=== PATIENT | male | born 1945 | race Caucasian/White ===

== ENCOUNTER → 2019-02-04 08:51 | Outpatient (CLI) | payer MEDICARE, OTHER, SELFPAY ==
--- NOTE | 2019-02-04 | DI.CT.S_ITS ---
PROCEDURE: CT KIDNEY URETER BLADDER (KUB) INDICATIONS: RIGHT FLANK PAIN TECHNIQUE: Noncontrast 5 mm thick sections acquired from the diaphragms to the symphysis. 5 mm thick coronal and sagittal reformats were then performed. For radiation dose reduction, the following was used: automated exposure control, adjustment of mA and/or kV according to patient size. COMPARISON: None. FINDINGS: Image quality: Excellent. Lung bases: Lung bases are clear. Heart size is normal. Urinary system: Both kidneys are normal in size. No kidney stones. No hydronephrosis or perinephric fat stranding. Both ureters appear non-dilated throughout their expected courses. Bladder wall thickness is normal; no calcified bladder stones. Other solid organs: Liver is normal in size. Gallbladder appears partially contracted. Pancreas is normal in contours. Spleen is normal in size. No adrenal nodules. Peritoneum and bowel: Unenhanced bowel loops demonstrate normal wall thickness and caliber. No free fluid or air. Nodes and vessels: No retroperitoneal or mesenteric adenopathy by size criteria. Aorta and inferior vena cava are normal in caliber. Abdominal wall: No ventral hernias. Pelvis: No free pelvic fluid. No inguinal hernias or adenopathy. Bones: No suspicious bony lesions. No vertebral body compression fractures. IMPRESSION: No hydronephrosis or nephrolithiasis is found bilaterally. Along the expected course of the right ureter through the retroperitoneum no inflammation or calculus can be seen. The bladder appears nondistended, free of calculus. A definite source of asymmetric right-sided flank pain is not seen. Dictated by: Aries Helton M.D. on 02/04/2019 at 9:25 Approved by: Aries Helton M.D. on 02/04/2019 at 9:27
== END ==
PROVIDERS: PCP Internal Medicine; Visit Provider Internal Medicine
DX: R10.9 Unspecified abdominal pain (principal)
CPT/HCPCS: 74176

== ENCOUNTER → 2019-02-12 13:54 | Outpatient (CLI) | payer MEDICARE, OTHER, SELFPAY ==
--- NOTE | 2019-02-12 | DI.MRI.S_ITS ---
PROCEDURE: MR HEAD/BRAIN WO/W CON INDICATIONS: VASCULAR DEMENTIA WO BEHAVIORAL DISTURBANCE TECHNIQUE: Noncontrast axial T1 spin echo, axial T2 fast spin echo, sagittal and axial FLAIR, coronal T2 fast spin echo, axial gradient echo, axial diffusion and ADC through the brain. After the administration of contrast, axial and coronal 3D VIBE or T1 spin echo with fat saturation through the brain. COMPARISON: None. FINDINGS: Image quality: Excellent. CSF Spaces: Basal cisterns are patent. No extra-axial fluid collections. Ventricles are normal in size and shape. Brain: No midline shift. No intracranial bleeds or masses. No abnormal intracranial enhancement. The brainstem appears normal. Diffusion-weighted images demonstrate no acute ischemic insults. No chronic ischemic insults at the right hemisphere but the posterior occipital lobe on the left shows encephalomalacia chronic in appearance in an area measuring approximately 2 x 3 cm, against the convexity, without associated diffusion signal abnormality that would indicate subacute or acute injury as cause of this appearance.. Normal intravascular flow voids are present. Skull and face: Calvarial marrow is normal in signal. Orbits appear normal. Sinuses: Sinuses and mastoids appear clear. 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 Mild underlying microvascular atherosclerotic changes seen in the deep white matter elsewhere but no additional strokes are found and no mass or inflammation is seen. Dictated by: Aries Helton M.D. on 02/12/2019 at 14:50 Approved by: Aries Helton M.D. on 02/12/2019 at 14:51
== END ==
PROVIDERS: PCP Internal Medicine; Visit Provider Internal Medicine
DX: F01.50 Vascular dementia, unspecified severity, without behavioral disturbance, psychotic disturbance, mood disturbance, and anxiety (principal); G93.89 Other specified disorders of brain
CPT/HCPCS: 70553; A9579

== ENCOUNTER → 2019-02-19 09:40 | Outpatient (CLI) | payer MEDICARE, OTHER, SELFPAY ==
--- NOTE | 2019-02-19 | DI.RAD.S_ITS ---
PROCEDURE: XR RIBS LT 2V INDICATIONS: LEFT SIDED CHEST WALL PAIN TECHNIQUE: 2 views of the left ribs were acquired. COMPARISON: None. FINDINGS: Surgical changes and devices: None. Bones and chest wall: There is no displaced left third, fourth, and possibly ninth rib fractures of uncertain chronicity. No suspicious bony lesions. Overlying soft tissues appear unremarkable. Lungs and pleura: The visualized lung appears clear. No pleural effusions or pneumothorax are visible. IMPRESSION: Left third fourth and possibly ninth rib fractures of uncertain chronicity. Dictated by: Corrina Ramesh M.D. on 02/19/2019 at 10:10 Approved by: Corrina Ramesh M.D. on 02/19/2019 at 10:12
== END ==
PROVIDERS: PCP Internal Medicine; Visit Provider Internal Medicine
DX: R07.89 Other chest pain (principal); S22.42XA Multiple fractures of ribs, left side, initial encounter for closed fracture
CPT/HCPCS: 71100

== ENCOUNTER → 2019-03-21 13:01 | Outpatient (CLI) | payer MEDICARE, OTHER, SELFPAY ==
[2019-03-21 13:48] LABS: Add Manual Diff / Slide Review NO; Basophils Absolute Auto 100 /uL (0-100); Basophils Percent Auto 1.1 % (0-2); Eosinophils Absolute Auto 200 /uL (0-450); Eosinophils Percent Auto 4.5 % (2-4); Hematocrit 41.7 % (41-53); Hemoglobin 13.8 g/dL (13.5-17.5); Lymphocytes Absolute Auto 2000 /uL (1100-4500); Lymphocytes Percent Auto 39.5 % (25-40); Mean Corpuscular Hemoglobin 30.3 PG (26-34); Monocytes Absolute Auto 400 /uL (0-900); Neutrophils Absolute Auto 2400 /uL (1500-7000); Neutrophils Percent Auto 47.9 % (50-75); Platelet Count 127 X10^3/uL (150-400); Red Blood Cell Count 4.54 X10^6/uL (4.5-5.9); Red Cell Distribution Width 13.6 % (11.6-14.8); White Blood Cell Count 5.1 X10^3/uL (4.5-11.0)
[2019-03-21 14:54] LABS: Carbon Dioxide 27 mmol/L (22-32); Chloride 102 mmol/L (98-107); HEMOLYSIS < 15 (0-50); Potassium 4.1 mmol/L (3.4-5.1); Sodium 139 mmol/L (137-145)
== END ==
PROVIDERS: PCP Internal Medicine; Visit Provider Orthopaedic Surgery
DX: M17.10 Unilateral primary osteoarthritis, unspecified knee (principal); Z01.818 Encounter for other preprocedural examination; Z01.812 Encounter for preprocedural laboratory examination
CPT/HCPCS: 36415; 80051; 85025; 93005; 93010

== ENCOUNTER → 2019-11-21 11:47 | Outpatient (CLI) | payer MEDICARE, OTHER, SELFPAY ==
--- NOTE | 2019-11-21 | DI.RAD.S_ITS ---
PROCEDURE: XR HAND LT MIN 3V INDICATIONS: PAIN IN JOINTS OF RIGHT LEFT TECHNIQUE: 3 views of the hand(s) acquired. COMPARISON: None. FINDINGS: Bones: No fractures or dislocations. Carpal bones are normally aligned. No suspicious bony lesions. Severe second and third DIP joint osteoarthritic degenerative changes. Moderate first fourth and fifth PIP joint osteoarthritis. Soft tissues: No suspicious soft tissue calcifications. IMPRESSION: Osteoarthritis. Dictated by: Crystal Freitas MD, PhD on 11/21/2019 at 14:45 Approved by: Crystal Freitas MD, PhD on 11/21/2019 at 14:46
--- NOTE | 2019-11-21 | DI.RAD.S_ITS ---
PROCEDURE: XR HAND RT MIN 3V INDICATIONS: PAIN IN JOINTS OF RIGHT HAND TECHNIQUE: 3 views of the hand(s) acquired. COMPARISON: [facility], CR, XR HAND LT MIN 3V, 11/21/2019, 11:49. FINDINGS: Bones: No fractures or dislocations. Carpal bones are normally aligned. No suspicious bony lesions. Severe third DIP joint osteoarthritis. Moderate second DIP joint osteoarthritis. Mild first, fourth and fifth DIP joints osteoarthritis. Severe first CMC joint osteoarthritis. Soft tissues: No suspicious soft tissue calcifications. IMPRESSION: Osteoarthritis. Dictated by: Crystal Freitas MD, PhD on 11/21/2019 at 14:46 Approved by: Crystal Freitas MD, PhD on 11/21/2019 at 14:47
== END ==
PROVIDERS: PCP Internal Medicine; Visit Provider Internal Medicine
DX: M25.541 Pain in joints of right hand (principal); M25.542 Pain in joints of left hand; M19.042 Primary osteoarthritis, left hand; M19.041 Primary osteoarthritis, right hand; M18.11 Unilateral primary osteoarthritis of first carpometacarpal joint, right hand; Z12.5 Encounter for screening for malignant neoplasm of prostate; E78.49 Other hyperlipidemia; R10.9 Unspecified abdominal pain
CPT/HCPCS: 73130; 80061; 82565; 84153; 84154; 84450; 84460; 84520

== ENCOUNTER → 2019-11-21 15:22 | Outpatient (ROUT) | payer MEDICARE, OTHER, SELFPAY ==
[2019-11-21 16:10] LABS: Alanine Aminotransferase 21 IU/L (<50); Aspartate Aminotransferase 30 IU/L (17-59); Blood Urea Nitrogen 14 mg/dL (9-20); Cholesterol 137 mg/dL (140-199); Estimated Glomerular Filt Rate > 60.0 mL/min (>60); HDL Cholesterol 47 mg/dL (40-60); LDL Cholesterol Calculated 74 mg/dL (<100); Triglycerides 80 mg/dL (35-150)
[2019-11-23 14:09] LABS: PSA Free % 28 % (calc) (> 25); PSA, Total 2.5 ng/mL (< 4.1)
== END ==
PROVIDERS: PCP Internal Medicine; Visit Provider Internal Medicine
DX: Z12.5 Encounter for screening for malignant neoplasm of prostate (principal); E78.49 Other hyperlipidemia; R10.9 Unspecified abdominal pain
CPT/HCPCS: 80061; 82565; 84153; 84154; 84450; 84460; 84520

== ENCOUNTER → 2019-11-25 09:57 | Outpatient (CLI) | payer MEDICARE, OTHER, SELFPAY ==
--- NOTE | 2019-11-25 | DI.CT.S_ITS ---
PROCEDURE: CT ABDOMEN W CON INDICATIONS: Unspecified abdominal pain TECHNIQUE: After the administration of oral and intravenous contrast, 5 mm thick sections acquired from the diaphragms to the iliac crests. 5 mm thick coronal and sagittal reformats were acquired. For radiation dose reduction, the following was used: automated exposure control, adjustment of mA and/or kV according to patient size. COMPARISON: None. FINDINGS: Image quality: Excellent. Lung bases: Lung bases are clear. Heart size is normal. Solid organs: Liver is normal in size and enhancement. Gallbladder appears normal. Biliary system is non dilated. Pancreas enhances normally. Spleen is normal in size and enhancement. No adrenal nodules. Kidneys are normal in size, without hydronephrosis. Peritoneum and bowel: Contrast enhanced bowel loops appear normal in caliber. No free fluid or air. Colonic obstipation is present over the right and left colon. Nodes and vessels: No retroperitoneal or mesenteric adenopathy by size criteria. Aorta and inferior vena cava are normal in size. Bones: No suspicious bony lesions. No vertebral body compression fractures. Miscellaneous: No ventral hernias. IMPRESSION: Right and left abdominal colonic obstipation. Please note that this abdominal CT does not include pelvis scanning. No hydronephrosis or nephrolithiasis found, no inflammatory free fluid identified. Dictated by: Aries Helton M.D. on 11/25/2019 at 14:36 Approved by: Aries Helton M.D. on 11/25/2019 at 14:37
== END ==
PROVIDERS: PCP Internal Medicine; Visit Provider Internal Medicine
DX: R10.9 Unspecified abdominal pain (principal); K59.00 Constipation, unspecified
CPT/HCPCS: 74160; Q9967

== ENCOUNTER → 2020-05-28 14:45 | Outpatient (ROUT) | payer MEDICARE, OTHER, SELFPAY ==
[2020-05-28 15:01] LABS: Add Manual Diff / Slide Review NO; Basophils Absolute Auto 0 /uL (0-100); Basophils Percent Auto 0.4 % (0-2); Eosinophils Absolute Auto 200 /uL (0-450); Eosinophils Percent Auto 3.6 % (2-4); Hematocrit 42.4 % (41-53); Hemoglobin 14.3 g/dL (13.5-17.5); Lymphocytes Absolute Auto 1800 /uL (1100-4500); Lymphocytes Percent Auto 30.1 % (25-40); Mean Corpuscular HGB Conc 33.7 % (30-36); Mean Corpuscular Hemoglobin 31.3 PG (26-34); Mean Corpuscular Volume 92.7 fL (80-100); Monocytes Absolute Auto 400 /uL (0-900); Monocytes Percent Auto 6.1 % (3-14); Neutrophils Absolute Auto 3500 /uL (1500-7000); Neutrophils Percent Auto 59.8 % (50-75); Platelet Count 125 X10^3/uL (150-400); Red Blood Cell Count 4.58 X10^6/uL (4.5-5.9); Red Cell Distribution Width 13.1 % (11.6-14.8); White Blood Cell Count 5.9 X10^3/uL (4.5-11.0)
[2020-05-28 15:25] LABS: Blood Urea Nitrogen 16 mg/dL (9-20); Calcium 9.5 mg/dL (8.4-10.2); Carbon Dioxide 25 mmol/L (22-32); Chloride 106 mmol/L (98-107); Estimated Glomerular Filt Rate > 60.0 mL/min (>60); Glucose 127 mg/dL (80-110); HEMOLYSIS 15 (0-50); Sodium 140 mmol/L (137-145)
== END ==
PROVIDERS: PCP Internal Medicine; Visit Provider Internal Medicine
DX: Z01.818 Encounter for other preprocedural examination (principal)
CPT/HCPCS: 80048; 85025

== ENCOUNTER 2021-02-18 13:45 | Emergency (ER) | payer MEDICARE, OTHER, SELFPAY ==
[2021-02-18] VITALS (9 sets, daily range): BP systolic 129–153; BP diastolic 60–70; PULSE 44–69; RESP 13–28; TEMP 36.6; O2SAT 96–99; BMI 22.4
[2021-02-18 14:22] LABS: Add Manual Diff / Slide Review NO; Basophils Absolute Auto 0 /uL (0-100); Basophils Percent Auto 1.1 % (0-2); Eosinophils Absolute Auto 200 /uL (0-450); Eosinophils Percent Auto 3.7 % (2-4); Hematocrit 38.7 % (41-53); Hemoglobin 13.2 g/dL (13.5-17.5); Lymphocytes Absolute Auto 1500 /uL (1100-4500); Lymphocytes Percent Auto 35.1 % (25-40); Mean Corpuscular HGB Conc 34.1 % (30-36); Mean Corpuscular Hemoglobin 31.7 PG (26-34); Mean Corpuscular Volume 92.8 fL (80-100); Monocytes Absolute Auto 300 /uL (0-900); Monocytes Percent Auto 7.4 % (3-14); Neutrophils Absolute Auto 2300 /uL (1500-7000); Neutrophils Percent Auto 52.7 % (50-75); Platelet Count 129 X10^3/uL (150-400); Red Blood Cell Count 4.17 X10^6/uL (4.5-5.9); Red Cell Distribution Width 13.1 % (11.6-14.8); White Blood Cell Count 4.3 X10^3/uL (4.5-11.0)
[2021-02-18 14:25] LABS: INR 1.1 (0.9-1.3); Prothrombin Time 12.6 SECONDS (10.1-12.7)
[2021-02-18 14:28] LABS: PTT Partial Thromboplastin Tim 30 SECONDS (26.4-36.2)
[2021-02-18 14:29] LABS: Alanine Aminotransferase 21 IU/L (<50); Albumin 4.2 g/dL (3.5-5.0); Albumin Globulin Ratio 1.6 (1.0-2.8); Alkaline Phosphatase 46 U/L (38-126); Aspartate Aminotransferase 33 IU/L (17-59); BUN Creatinine Ratio 15.8 (6-22); Bilirubin Total 0.5 mg/dL (0.2-1.3); Blood Urea Nitrogen 15 mg/dL (9-20); Calcium 9.5 mg/dL (8.4-10.2); Carbon Dioxide 26 mmol/L (22-32); Chloride 106 mmol/L (98-107); Estimated Glomerular Filt Rate > 60.0 mL/min (>60); Globulin 2.6 g/dL (1.7-4.1); Glucose 102 mg/dL (80-110); HEMOLYSIS 24 (0-50); Lipase 168 U/L (23-300); Sodium 140 mmol/L (137-145); Total Protein 6.8 g/dL (6.3-8.2)
--- NOTE | 2021-02-18 15:20 | ED_ITS ---
HPI - Abdominal Pain General Chief Complaint: Abdominal Pain Stated Complaint: pain in lower right side Time Seen by Provider: 02/18/21 14:12 Source: patient Mode of arrival: Ambulatory Limitations: no limitations History of Present Illness HPI narrative: 75-year-old male nonsmoker with history of kidney stones and hypertension presents with his in the chief complaint of right lower quadrant pain that radiates to his back. He states this has been present for about a week and in some ways feels like prior kidney stones and otherwise much different. He states that seems to be rather persistent and worse with motion and improved with rest. He admits to decreased BMs in that time frame as well. Furthermore, he admits to trouble starting his urine stream with increasing frequency. He has had no fever or chills. MD complaint: abdominal pain and flank pain Onset (ago): day(s) Pain Consistency: constant Location: RLQ Severity: moderate Quality: cramping and aching Radiation: R flank Relieving factors: rest Exacerbating factors: movement Associated symptoms: constipation Related Data Home Medications Medication Instructions Recorded Confirmed aspirin 325 mg PO Q DAY #0 07/03/17 atorvastatin [Lipitor] 10 mg PO QHS #0 07/03/17 hydrocodone-acetaminophen [Vicodin] 1 tab PO Q 6 PRN #0 07/03/17 lamotrigine [Lamictal] 50 mg PO BID #0 07/03/17 omeprazole 20 mg PO Q DAY #0 07/03/17 promethazine 25 mg PO PRN #0 07/03/17 tamsulosin [Flomax] 0.4 mg PO Q DAY #0 07/03/17 Allergies Allergy/AdvReac Type Severity Reaction Status Date / Time No Known Drug Allergies Allergy Verified 02/18/21 13:56 Review of Systems Constitutional Constitutional: Denies chills, Denies fatigue, Denies fever(s), Denies frequent falls, Denies lethargy and Denies weakness Eyes Eyes: Denies change in vision, Denies eye discharge, Denies irritation and Denies loss of vision ENT Ears, Nose, Mouth, and Throat: Denies change in voice, Denies dizziness, Denies neck pain, Denies sore throat and Denies throat swelling Cardiovascular Cardiovascular: Denies chest pain, Denies irregular heart rhythm, Denies l ightheadedness, Denies palpitations, Denies dyspnea, Denies dyspnea on exertion and Denies orthopnea Respiratory Respiratory: Denies cough, Denies dyspnea, Denies dyspnea on exertion and Denies wheezing Gastrointestinal Gastrointestinal: Reports abdominal pain, Denies change in bowel habits, Reports constipation, Denies diarrhea, Denies nausea and Denies vomiting Musculoskeletal Musculoskeletal: Denies neck pain and Denies numbness Integumentary/Breasts Skin/Breast: Denies pruritus, Denies erythema, Denies rash and Denies wounds Neurologic Neurologic: Denies behavioral changes, Denies confusion, Denies dizziness, Denies frequent falls, Denies loss of vision, Denies numbness and Denies weakness Psychiatric Psychiatric: Denies anxiety, Denies behavioral changes, Denies confusion, Denies depression, Denies homicidal ideation and Denies suicidal ideation Endocrine Endocrine: Denies fatigue, Denies flushing and Denies palpitations Hematologic/Lymphatic Hematologic/Lymphatic: Denies easy bruising Allergic/Immunologic Allergic/Immunologic: Denies urticaria, Denies throat swelling and Denies wheezing Patient History Social History Smoking Status: Unknown if ever smoked Smoking Status: Unknown if ever smoked alcohol intake frequency: a few times a week Substance Use Type: does not use Exam Narrative Exam Narrative: GENERAL: [75] year old patient appears stated age. Well- nourished, well-developed patient, in mild distress. HEAD: Atraumatic. Normocephalic. EYES: Pupils equal round and reactive. Extraocular motions intact. No scleral ic terus. No injection or drainage. ENT: Nose without bleeding, purulent drainage. Throat without erythema, tonsillar hypertrophy or exudate. Airway patent. NECK: Trachea midline. Non tender CARDIOVASCULAR: Regular rate and rhythm without murmurs, gallops, or rubs. RESPIRATORY: Clear to auscultation. Breath sounds equal bilaterally. No wheezes, rales, or rhonchi. GASTROINTESTINAL: Abdomen soft, tender in the right lower quadrant, nondistended. Decreased bowel sounds on right compared to left EXTREMITIES: No edema or joint tenderness. BACK: Nontender without deformity or crepitance. No flank tenderness. NEURO: AOx3. SKIN: No rash or erythema of visible areas Initial Vital Signs Initial Vital Signs: Vital Signs Temperature 97.9 F 02/18/21 13:50 Pulse Rate 69 02/18/21 13:50 Respiratory Rate 14 02/18/21 13:50 Blood Pressure 150/70 H 02/18/21 13:50 Pulse Oximetry 99 02/18/21 13:50 Course Orders Ordered: ED Orders 02/18/21 13:56 EKG-12 Lead Stat 02/18/21 14:08 Complete Blood Count AUTO DIFF Stat Comprehensive Metabolic Panel Stat Lipase Stat Partial Thromboplastin Time Stat Prothrombin Time INR Stat 02/18/21 15:26 CT abdomen pelvis w con Stat Vital Signs Vital signs: Vital Signs - 8 hr 02/18/21 13:50 02/18/21 14:09 02/18/21 14:10 Temperature 97.9 F Pulse Rate 69 52 L Respiratory Rate 14 Blood Pressure 150/70 H 139/68 Pulse Oximetry 99 97 02/18/21 14:30 02/18/21 15:00 02/18/21 15:30 Temperature Pulse Rate 48 L Respiratory Rate 15 13 Blood Pressure 129/60 134/69 Pulse Oximetry 97 96 98 02/18/21 15:40 02/18/21 16:00 Temperature Pulse Rate 50 L 44 L Respiratory Rate 15 14 Blood Pressure 153/70 H 139/66 Pulse Oximetry 98 99 MDM - Abdominal Pain Lab Data Result diagrams: 02/18/21 14:08 02/18/21 14:08 Labs: Lab Results 02/18/21 02/18/21 02/18/21 Range/Units 14:08 14:08 14:08 WBC 4.3 L (4.5-11.0) X10^3/uL RBC 4.17 L (4.5-5.9) X10^6/uL Hgb 13.2 L (13.5-17.5) g/dL Hct 38.7 L (41-53) % MCV 92.8 (80-100) fL MCH 31.7 (26-34) PG MCHC 34.1 (30-36) % RDW 13.1 (11.6-14.8) % Plt Count 129 L (150-400) X10^3/uL Neut % (Auto) 52.7 (50-75) % Lymph % (Auto) 35.1 (25-40) % [place] % (Auto) 7.4 (3-14) % Eos % (Auto) 3.7 (2-4) % Baso % (Auto) 1.1 (0-2) % Neut # (Auto) 2300 (2709-9324) /uL Lymph # (Auto) 1500 (9715-6586) /uL [place]arton # (Auto) 300 (0-900) /uL Eos # (Auto) 200 (0-450) /uL Baso # (Auto) 0 (0-100) /uL PT 12.6 (10.1-12.7) SECONDS INR 1.1 (0.9-1.3) APTT 30 (26.4-36.2) SECONDS Sodium 140 (137-145) mmol/L Potassium 4.0 (3.4-5.1) mmol/L Chloride 106 (98-107) mmol/L Carbon Dioxide 26 (22-32) mmol/L BUN 15 (9-20) mg/dL Creatinine 0.95 (0.66-1.25) mg/dL Estimated GFR > 60.0 (>60) mL/min BUN/Creatinine Ratio 15.8 (6-22) Glucose 102 (80-110) mg/dL Calcium 9.5 (8.4-10.2) mg/dL Total Bilirubin 0.5 (0.2-1.3) mg/dL AST 33 (17-59) IU/L ALT 21 (<50) IU/L Alkaline Phosphatase 46 (38-126) U/L Total Protein 6.8 (6.3-8.2) g/dL Albumin 4.2 (3.5-5.0) g/dL Globulin 2.6 (1.7-4.1) g/dL Albumin/Globulin Ratio 1.6 (1.0-2.8) Lipase 168 (23-300) U/L Point of care testing: Urine Dip Bedside Urine Glucose Negative Bedside Urine Bilirubin - Negative Bedside Urine Ketone - Negative Urine Specific [place] 1.020 Bedside Urine Occult Blood - Negative Bedside Urine pH 5.5 Bedside Urine Protein - Negative Bedside Urine Urobilinogen - Negative Bedside Urine Nitrite - Negative Bedside Urine Leukocytes - Negative Esterase Imaging Data CT scan - abdomen/pelvis: Radiologist's Impression: [address] [id number] Scan ReportSigned Patient: Rafy Andrade AMR#: [id number]: 7Acct:[id number]/Sex: 75 / MDate of Service: 02/18/21Loc: EDAccession Number: [id number] Procedure: CT abdomen pelvis w con Ordering Provider: Scott Mae D.O. PROCEDURE: CT ABDOMEN PELVIS W CON INDICATIONS: severe RLQ and side pain TECHNIQUE: After the administration of intravenous contrast, 5 mm thick sections acquired from the diaphragm to the symphysis. 5 mm coronal and sagittal reformats were acquired. For radiation dose reduction, the following was used: automated exposure control, adjustment of mA and/or kV according to patient size. COMPARISON: [facility], CT, CT ABDOMEN W CON, 11/25/2019, 11:01. FINDINGS: Image quality: Excellent. ABDOMEN: Lung bases: Mild bibasilar atelectasis. Heart size is normal. Solid organs: Liver is normal in size and enhancement. Gallbladder is decompressed but otherwise unremarkable. Biliary system is non dilated. Pancreas enhances normally. Spleen is normal in size and enhancement. No adrenal nodules. Kidneys demonstrate normal size and enhancement, without hydronephrosis. Peritoneum and bowel: Bowel loops demonstrate normal wall thickness and caliber. No free fluid or air. Scattered colonic diverticulosis without evidence for acute diverticulitis. There is mild thickening and soft tissue fullness of the distal esophagus and gastroesophageal junction, likely related to incomplete distension. There is a moderate amount of fecal material seen throughout the colon most severe in the ascending, transverse, and descending colon. The appendix is not definitively visualized; however, no secondary findings for acute inflammation. Nodes and vessels: No retroperitoneal or mesenteric adenopathy by size criteria. Aorta and inferior vena cava are normal in size. There is ectasia of the left distal common iliac artery. Miscellaneous: No ventral hernias. PELVIS: Genitourinary: Urinary bladder wall thickness appears normal for degree of distension. Pr ominent size of the prostate. Miscellaneous: No inguinal hernias. No pelvic adenopathy. Bones: No suspicious bony lesions. No acute vertebral body compression fractures. IMPRESSION: 1. Colonic diverticulosis without acute diverticulitis. 2. Moderate amount of fecal material seen throughout the colon without evidence for obstruction or acute inflammatory changes. Findings may be related to constipation. 3. The appendix is not definitively visualized; however, no secondary findings for acute inflammatory change. 4. Mild circumferential thickening and soft tissue fullness of the distal esophagus and gastroesophageal junction, likely related to incomplete distension. Recommend clinical correlation. Consider further evaluation with direct visualization. Dictated by: Robert Gonzalez M.D. on 02/18/2021 at 15:06 Approved by: Robert Gonzalez M.D. on 02/18/2021 at 15:18 Discharge Plan Departure Patient Disposition: Home Clinical Impression: Abdominal pain, acute, right lower quadrant Instructions: DI for Abdominal Pain-Adult Activity Restrictions/Additional Instructions: *You have been diagnosed with [ abdominal pain which may be due to constipation. Labs and CT scan do not show kidney stone, appendicitis, diverticulitis or other ominous finding. ] *What to do: *Take over the counter medications as directed: 1. Metamucil - bulk forming laxative adds fiber 2. Colace - softens your stool 3. Dulcolax Suppository - stimulates your bowels from the bottom *Follow up with your primary care provider in 2-3 days, call for appointment *Return to ER if you should have any new, worsening or concerning sympto ms *Drink plenty of water and eat foods high in fiber *Try to be as active as possible, consider walking your dog daily Prescriptions: No Action aspirin 325 MG tablet,delayed release (DR/EC) 325 mg PO Q DAY Qty: 0 RF: 0 promethazine 25 MG tablet 25 mg PO PRNQty: 0 RF: 0 omeprazole 20 MG capsule,delayed release(DR/EC) 20 mg PO Q DAY Qty: 0 RF: 0 tamsulosin [Flomax] 0.4 MG capsule,extended release 24hr 0.4 mg PO Q DAY Qty: 0 RF: 0 lamotrigine [Lamictal] 100 MG tablet 50 mg PO BID Qty: 0 RF: 0 hydrocodone-acetaminophen [Vicodin] 5 MG/300 MG tablet 1 tab PO Q 6 PRNQty: 0 RF: 0 atorvastatin [Lipitor] 10 MG tablet 10 mg PO QHS Qty: 0 RF: 0 Referrals: Nuzhat Gutiérrez MD [Primary Care Provider] -
--- NOTE | 2021-02-18 15:26 | DI.CT.S_ITS ---
PROCEDURE: CT ABDOMEN PELVIS W CON INDICATIONS: severe RLQ and side pain TECHNIQUE: After the administration of intravenous contrast, 5 mm thick sections acquired from the diaphragm to the symphysis. 5 mm coronal and sagittal reformats were acquired. For radiation dose reduction, the following was used: automated exposure control, adjustment of mA and/or kV according to patient size. COMPARISON: [facility], CT, CT ABDOMEN W CON, 11/25/2019, 11:01. FINDINGS: Image quality: Excellent. ABDOMEN: Lung bases: Mild bibasilar atelectasis. Heart size is normal. Solid organs: Liver is normal in size and enhancement. Gallbladder is decompressed but otherwise unremarkable. Biliary system is non dilated. Pancreas enhances normally. Spleen is normal in size and enhancement. No adrenal nodules. Kidneys demonstrate normal size and enhancement, without hydronephrosis. Peritoneum and bowel: Bowel loops demonstrate normal wall thickness and caliber. No free fluid or air. Scattered colonic diverticulosis without evidence for acute diverticulitis. There is mild thickening and soft tissue fullness of the distal esophagus and gastroesophageal junction, likely related to incomplete distension. There is a moderate amount of fecal material seen throughout the colon most severe in the ascending, transverse, and descending colon. The appendix is not definitively visualized; however, no secondary findings for acute inflammation. Nodes and vessels: No retroperitoneal or mesenteric adenopathy by size criteria. Aorta and inferior vena cava are normal in size. There is ectasia of the left distal common iliac artery. Miscellaneous: No ventral hernias. PELVIS: Genitourinary: Urinary bladder wall thickness appears normal for degree of distension. Prominent size of the prostate. Miscellaneous: No inguinal hernias. No pelvic adenopathy. Bones: No suspicious bony lesions. No acute vertebral body compression fractures. IMPRESSION: 1. Colonic diverticulosis without acute diverticulitis. 2. Moderate amount of fecal material seen throughout the colon without evidence for obstruction or acute inflammatory changes. Findings may be related to constipation. 3. The appendix is not definitively visualized; however, no secondary findings for acute inflammatory change. 4. Mild circumferential thickening and soft tissue fullness of the distal esophagus and gastroesophageal junction, likely related to incomplete distension. Recommend clinical correlation. Consider further evaluation with direct visualization. Dictated by: Robert Gonzalez M.D. on 02/18/2021 at 15:06 Approved by: Robert Gonzalez M.D. on 02/18/2021 at 15:18
--- NOTE | 2021-02-18 15:53 | PC.NURSE ---
patient states that his heart rate is normally in the 50's and is not concerned of his low heart rate. He denies lightheadedness, dizziness or any other symptoms besides his right lower abd pain that he came in for.
== END 2021-02-18 17:07 | disposition home or self-care (01) ==
PROVIDERS: Emergency Medicine; Emergency Provider Emergency Medicine; PCP Internal Medicine
DX: R10.31 Right lower quadrant pain (principal); K59.00 Constipation, unspecified
CPT/HCPCS: 36415; 51798; 74177; 80053; 81003; 83690; 85025; 85610; 85730; 93005; 93010; 99284; Q9967

== ENCOUNTER → 2021-02-22 12:45 | Outpatient (CLI) | payer MEDICARE, OTHER, SELFPAY ==
--- NOTE | 2021-02-22 | DI.US.S_ITS ---
PROCEDURE: US ABDOMEN LIMITED INDICATIONS: Right upper quadrant pain TECHNIQUE: Real-time focused scanning was performed of the abdomen, with image documentation. COMPARISON: [facility], CT, CT ABDOMEN PELVIS W CON, 02/18/2021, 15:30. FINDINGS: The liver demonstrates normal size. The liver demonstrates generalized mildly increased echogenicity. This decreases ultrasound sensitivity for detection of hepatic masses. No findings of gallstones or sludge are seen. The gallbladder wall is not thickened, measuring 3 mm or less. No specific pericholecystic fluid is seen. The sonographic Best sign is negative. There is no biliary dilatation, the common bile duct measures 5 mm. No significant pancreatic abnormality is seen on these images. IMPRESSION: The gallbladder demonstrates a normal sonographic appearance. No biliary dilatation is seen. The liver demonstrates increased echogenicity. This finding is nonspecific, yet it is most commonly attributed to fatty infiltration. Dictated by: Frederic Burns M.D. on 02/22/2021 at 12:52 Approved by: Frederic Burns M.D. on 02/22/2021 at 12:53
== END ==
PROVIDERS: PCP Internal Medicine; Referring Provider Internal Medicine; Visit Provider Internal Medicine
DX: R10.11 Right upper quadrant pain (principal)
CPT/HCPCS: 76705

== ENCOUNTER → 2022-08-05 13:25 | Outpatient (CLI) | payer MEDICARE, OTHER, SELFPAY ==
--- NOTE | 2022-08-05 13:28 | DI.ECHO.S_ITS ---
[facility] +---------+ : : [address] : [address] [place] : : : : [id number] : : : : Phone: [phone]+ Echocardiogram Report + + :Name: ADITYA STEELE Study Date: 08/05/2022 Height: 70 in : :[facility] ReadingLocation: Weight: 165 lb : : Gender: Male BSA: 1.9 m2 : :: 1945 Age: 76 yrs BP: 139/77 mmHg: :Reason For Study: Murmur : :Ordering Physician: PRAKASH, : :JUSTINE Performed By: Jeremy Trimble : :Referring: JUSTINE RANDALL : + + Interpretation Summary The left ventricle is normal in size. There is mild concentric left ventricular hypertrophy. The ejection fraction is estimated to be 50-55%. The right ventricle is normal in size and function. The aortic valve is mildly calcified. There is mildly reduced leaflet mobility. The peak aortic velocity is 2.8 m/sec. The aortic valve mean gradient is 17 mmHg. There is mild aortic stenosis. There is mild to moderate tricuspid regurgitation. The right ventricular systolic pressure is estimated to be at least 33 mmHg based on an estimated right atrial pressure of 3 mm Hg. There is aortic root sclerosis/calcification. Procedure: A two-dimensional transthoracic echocardiogram with color flow and Doppler was performed. The study quality was technically adequate. There is no prior echocardiogram noted for this patient. The patient was in sinus bradycardia with heart rates between 50-57 bpm during the exam. Left Ventricle: The left ventricle is normal in size. There is mild concentric left ventricular hypertrophy. There is no thrombus. The ejection fraction is estimated to be 50-55%. There are no focal wall motion abnormalities. Diastolic parameters suggest a relaxation abnormality of the left ventricle, consistent with probable normal filling pressures. Right Ventricle: The right ventricle is normal in size and function. Atria: The left atrium is moderately dilated. Right atrial size is normal. The interatrial septum grossly appears intact with no obvious evidence for an atrial septal defect. Mitral Valve: There is mild mitral annular calcification. The mitral valve chordae are thickened and/or calcified. There is mild mitral regurgitation. Aortic Valve: The aortic valve is mildly calcified. There is mildly reduced leaflet mobility. There is mild aortic stenosis. The aortic valve mean gradient is 17 mmHg. The peak aortic velocity is 2.8 m/sec. There is trace aortic regurgitation. Tricuspid Valve: The tricuspid valve is normal. There is mild to moderate tricuspid regurgitation. The right ventricular systolic pressure is estimated to be at least 33 mmHg based on an estimated right atrial pressure of 3 mm Hg. Pulmonic Valve: The pulmonic valve is not well seen, but is grossly normal. There is no pulmonic valvular regurgitation. Great Vessels: The aortic root is normal size. There is aortic root sclerosis/calcification. The dimensions of the ascending aorta are normal. The IVC is of normal diameter and collapses greater than 50% with a sniff. This suggests a low right atrial pressure of 3 mm Hg. Pericardium/ Pleura There is no pericardial effusion. There is no pleural effusion. MMode/2D Measurements & Calculations LVIDd: 5.4 cm LVOT diam: 2.2 cm LVIDs: 3.8 cm Ao root diam: 3.3 cm FS: 30.1 % asc Aorta Diam: 3.2 cm IVSd: 1.1 cm LVPWd: 1.1 cm LV stein. diameter/BSA (cm/m^2): 2.8 LV sys. diameter/BSA (cm/m^2): 2.0 LA A2 area: 24.7 cm2 RA long axis: 5.8 cm LA A4 area: 23.4 cm2 RA area: 17.3 cm2 LA length (vol): 6.0 cm RA vol: 43.4 ml LA vol: 81.6 ml RA : 22.6 ml/m2 LA vol index: 42.4 ml/m2 IVC diam: 2.0 cm TAPSE: 2.1 cm MILLI (plan): 1.8 cm2 Doppler Measurements & Calculations Ao V2 max: 281.6 cm/sec LVOT Max Jesus: 84.0 cm/sec Ao V2 mean: 193.4 cm/sec LV V1 max P.8 mmHg Ao max P.7 mmHg LV V1 VTI: 20.1 cm Ao mean P.0 mmHg MILLI(I,D): 1.2 cm2 Ao V2 VTI: 64.9 cm MILLI(V,D): 1.2 cm2 sev ratio: 0.31 MILLI indexed to BSA (cm^2/m^2): 0.63 MV E max jesus: 57.4 cm/sec TR max jesus: 271.7 cm/sec MV A max jesus: 62.2 cm/sec TR max P.5 mmHg MV E/A: 0.92 Med Peak E' Jesus: 4.6 cm/sec E/E' med: 12.4 Lat Peak E' Jesus: 7.3 cm/sec E/E' lat: 7.9 E/e' average: 10.1 MV dec time: 0.21 sec SV(OT): 79.2 ml Reading Physician:05:43 PM
== END ==
PROVIDERS: PCP Internal Medicine; Referring Provider Internal Medicine; Visit Provider Internal Medicine
DX: I08.3 Combined rheumatic disorders of mitral, aortic and tricuspid valves (principal); R01.1 Cardiac murmur, unspecified
CPT/HCPCS: 93306

== ENCOUNTER 2023-12-20 12:06 | Emergency (ER) | payer MEDICARE, OTHER, SELFPAY ==
[2023-12-20 12:12] VITALS: BP 155/69; PULSE 54; RESP 18; TEMP 36.3; O2SAT 99; BMI 22.4
--- NOTE | 2023-12-20 12:28 | DI.CT.S_ITS ---
PROCEDURE: CT HEAD/BRAIN WO CON INDICATIONS: fall skiing TECHNIQUE: Noncontrast 4.5 mm thick angled axial sections acquired from the foramen magnum to the vertex, with coronal and sagittal reformats. For radiation dose reduction, the following was used: automated exposure control, adjustment of mA and/or kV according to patient size. COMPARISON: MR, MR HEAD/BRAIN WO/W CON, 02/12/2019, 14:20. FINDINGS: Image quality: Diagnostic. CSF spaces: Basal cisterns are patent. No extra-axial fluid collections. The ventricles are symmetric in size and shape. Brain: No intracranial bleeds or masses. There is focal encephalomalacia in the left occipital lobe, unchanged since 02/12/2019, compatible with old infarct. There is cerebral volume loss for age, with resultant ventricular and sulcal prominence. There are periventricular and deep white matter chronic small vessel ischemic changes. There is intracranial internal carotid artery atherosclerosis. Skull and face: Calvarium and visualized facial bones appear intact, without suspicious lesions. Sinuses: Visualized sinuses and mastoids are clear. IMPRESSION: 1. No acute intracranial abnormalities. 2. 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 Dictated by: Corrina Ramesh M.D. on 12/20/2023 at 12:54 Approved by: Corrina Ramesh M.D. on 12/20/2023 at 12:58
--- NOTE | 2023-12-20 12:28 | DI.RAD.S_ITS ---
PROCEDURE: XR HIP W PEL IF DONE LT 2V INDICATIONS: pain fall TECHNIQUE: AP pelvis with lateral view(s) of the left hip(s). COMPARISON: None. FINDINGS: Bones: No fractures or dislocations. Pelvic ring appears intact. No suspicious bony lesions. Soft tissues: The visualized bowel gas pattern is normal. No suspicious soft tissue calcifications. IMPRESSION: No acute bony abnormality. If clinical symptoms persist or clinical suspicion for pathology is high, a repeat examination in 7-10 days, or advanced imaging such as CT or MRI is suggested for further evaluation. Dictated by: Corrina Ramesh M.D. on 12/20/2023 at 13:50 Approved by: Corrina Ramesh M.D. on 12/20/2023 at 13:50
--- NOTE | 2023-12-20 12:29 | DI.CT.S_ITS ---
PROCEDURE: CT CERVICAL SPINE WO CON INDICATIONS: fall TECHNIQUE: Noncontrast 3 mm thick sections acquired from the skull base to the T4 level. Sagittal and coronal reformats were then constructed. For radiation dose reduction, the following was used: automated exposure control, adjustment of mA and/or kV according to patient size. COMPARISON: [facility], CT, CT HEAD/BRAIN WO CON, 12/20/2023, 12:39. FINDINGS: Image quality: Excellent. Bones: No fractures or dislocations. Mild scoliosis. Moderate spondylitic changes in cervical spine. Visualized superior ribs are intact. Soft tissues: Prevertebral soft tissues are normal in thickness. No paravertebral hematomas. No apical pneumothoraces. IMPRESSION: No displaced fracture or traumatic subluxation. Dictated by: Corrina Ramesh M.D. on 12/20/2023 at 12:58 Approved by: Corrina Ramesh M.D. on 12/20/2023 at 13:00
--- NOTE | 2023-12-20 12:29 | DI.RAD.S_ITS ---
PROCEDURE: XR RIBS LT MIN 3V W CXR1V INDICATIONS: fall pain TECHNIQUE: 4 views of the ribs were acquired, along with a single view chest. COMPARISON: None. FINDINGS: Surgical changes and devices: None. Bones and chest wall: No fractures or dislocations. Question subacute anterior aspect of the 8th rib. No suspicious bony lesions. Overlying soft tissues appear unremarkable. Lungs and pleura: No pleural effusions or pneumothorax. Lungs appear clear. Mediastinum: Mediastinal contours appear normal. Heart size is normal. IMPRESSION: No displaced rib fracture or pneumothorax. Question subacute fracture left 8th rib fracture. Dictated by: Corrina Ramesh M.D. on 12/20/2023 at 14:04 Approved by: Corrina Ramesh M.D. on 12/20/2023 at 14:11
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
[2023-12-20] MEDS: KETOROLAC 30 MG/ML VIAL 15 MG IV (14:17)
--- NOTE | 2023-12-20 14:53 | PC.NURSE ---
Pt reports pain at top of hip through lower left ribs, worse with breathing deep. No bruising or discoloration observed. Urine POC negative. Taken to imaging immediately after triage.
[2023-12-20 14:55] VITALS: BP 121/67; PULSE 47; O2SAT 99
--- NOTE | 2023-12-20 14:57 | PC.NURSE ---
This RNs first interaction with patient was during his discharge.
[2023-12-20 15:05] VITALS: O2SAT 97
== END 2023-12-20 15:14 | disposition home or self-care (01) ==
PROVIDERS: Emergency Provider Emergency Medicine; PCP Internal Medicine
DX: S22.32XA Fracture of one rib, left side, initial encounter for closed fracture (principal); S09.90XA Unspecified injury of head, initial encounter; R19.7 Diarrhea, unspecified; Z79.82 Long term (current) use of aspirin; V00.328A Other snow-ski accident, initial encounter
CPT/HCPCS: 70450; 71101; 72125; 73502; 81003; 96374; 99284; J1885

== ENCOUNTER 2025-09-01 12:19 | Emergency (ER) | payer MEDICARE, OTHER, SELFPAY ==
[2025-09-01 12:31] VITALS: BP 146/67; PULSE 57; RESP 18; TEMP 36.6; O2SAT 98; BMI 23.0
--- NOTE | 2025-09-01 13:42 | ED_ITS ---
HPI - Extremity Injury (Upper) <Sonny Monreal PA-C - Last Filed: 09/01/25 13:47> General Chief Complaint: Extremity Injury, Upper Stated Complaint: middle right finger possible infection Time Seen by Provider: 09/01/25 13:36 Source: patient Mode of arrival: Ambulatory History of Present Illness HPI narrative: 79-year-old male presents to the ED with a left middle finger injury sustained 5 days prior to arrival. Patient states that he accidentally cut the tip of his left middle finger on a piece of metal. The wound appeared to be healing well, until pain, swelling, redness worsened. Patient suspects that he might have an infection. Tetanus is up-to-date. No numbness, tingling, weakness. There is full range of motion of the finger. Related Data Home Medications ?Medication ?Instructions ?Recorded ?Confirmed aspirin 325 mg tablet,delayed 325 mg PO Q DAY ##0 09/0 02/13 release atorvastatin 10 mg tablet (Lipitor) 10 mg PO QHS ##0 0 07/03/17 hydrocodone 5 mg-acetaminophen 300 1 tab PO Q 6 PRN ## 0 07/03/17 mg tablet (Vicodin) lamotrigine 100 mg tablet 50 mg PO BID ##0 07/03/17 (Lamictal) omeprazole 20 mg capsule,delayed 20 mg PO Q DAY ##0 release promethazine 25 mg tablet 25 mg PO PRN ##0 07/03/17 tamsulosin 0.4 mg capsule (Flomax) 0.4 mg PO Q DAY ##0 07/03/17 Previous Rx's ?Medication ?Instructions ?Recorded hydrocodone 5 mg-acetaminophen 325 1 tab PO Q6H PRN pa in #20 tabs 12/20/ mg tablet cephalexin 500 mg capsule 500 mg PO QID 5 days #20 cap s 09/01/25 Allergies Allergy/AdvReac Type Severity Reaction Status Date / Time No Known Drug Allergies Allergy Verified 09/01/25 12:31 Review of Systems <Sonny Monreal PA-C - Last Filed: 09/01/25 13:47> Constitutional Constitutional: Denies chills, Denies fatigue, Denies fever(s), Denies frequent falls, Denies lethargy and Denies weakness Eyes Eyes: Denies change in vision, Denies eye discharge, Denies irritation and Denies loss of vision ENT Ears, Nose, Mouth, and Throat: Denies change in voice, Denies dizziness, Denies neck pain, Denies sore throat and Denies throat swelling Cardiovascular Cardiovascular: Denies chest pain, Denies irregular heart rhythm, Denies lightheadedness, Denies palpitations, Denies dyspnea, Denies dyspnea on exertion and Denies orthopnea Respiratory Respiratory: Denies cough, Denies dyspnea, Denies dyspnea on exertion and Denies wheezing Gastrointestinal Gastrointestinal: Denies abdominal pain, Denies change in bowel habits, Denies diarrhea, Denies nausea and Denies vomiting Musculoskeletal Musculoskeletal: Denies neck pain and Denies numbness Integumentary/Breasts Skin/Breast: Denies pruritus, Denies erythema, Denies rash and Reports wounds Comments: Worsening pain, swelling, redness to wound on left middle finger Neurologic Neurologic: Denies behavioral changes, Denies confusion, Denies dizziness, Denies frequent falls, Denies loss of vision, Denies numbness and Denies weakness Psychiatric Psychiatric: Denies anxiety, Denies behavioral changes, Denies confusion, Denies depression, Denies homicidal ideation and Denies suicidal ideation Endocrine Endocrine: Denies fatigue, Denies flushing and Denies palpitations Hematologic/Lymphatic Hematologic/Lymphatic: Denies easy bruising Allergic/Immunologic Allergic/Immunologic: Denies urticaria, Denies throat swelling and Denies wheezing Patient History <Sonny Monreal PA-C - Last Filed: 09/01/25 13:47> alcohol intake frequency: a few times a month Exam <Sonny Monreal PA-C - Last Filed: 09/01/25 13:47> Narrative Exam Narrative: Const General:?cooperative, healthy appearing and comfortable [facility] Head:?normal to inspection Ears:?hearing grossly normal bilaterally Nose:?external nose normal Face and sinus:?normal facial exam and sinuses nontender Mouth:?oral mucosae normal Throat:?posterior oropharynx normal Eyes General:?appearance normal, both eyes and all related structures Neck Neck:?normal visual inspection and no lymphadenopathy noted Resp Effort & Inspection:?normal respiratory effort Auscultation:?clear to auscultation bilaterally Cardio Rate:?regular rate Rhythm:?regular rhythm Integumentary There is erythema, swelling, tenderness to the area around the tip of the left middle finger where there is a healing cut. No discharge. Full range of motion. Strength and sensation is intact. Neurovascularly intact. Neuro General:?patient alert, patient awake and patient oriented x3 Initial Vital Signs Initial Vital Signs: Vital Signs Temperature 97.8 F 09/01/25 12:31 Pulse Rate 57 L 09/01/25 12:31 Respiratory Rate 18 09/01/25 12:31 Blood Pressure 146/67 H 09/01/25 12:31 Pulse Oximetry 98 09/01/25 12:31 Oxygen Delivery Method Room Air 09/01/25 12:31 <Haley Martins DO - Last Filed: 09/01/25 16:11> Initial Vital Signs Initial Vital Signs: Vital Signs Temperature 97.8 F 09/01/25 12:31 Pulse Rate 57 L 09/01/25 12:31 Respiratory Rate 18 09/01/25 12:31 Blood Pressure 146/67 H 09/01/25 12:31 Pulse Oximetry 98 09/01/25 12:31 Oxygen Delivery Method Room Air 09/01/25 12:31 Course <Sonny Monreal PA-C - Last Filed: 09/01/25 13:47> Vital Signs Vital signs: Vital Signs - 8 hr 09/01/25 12:31 09/01/25 13:52 Temperature 97.8 F 99.7 F H Pulse Rate 57 L 97 H Respiratory Rate 18 12 Blood Pressure 146/67 H 138/63 Pulse Oximetry 98 97 Oxygen Delivery Method Room Air Room Air <Haley Martins DO - Last Filed: 09/01/25 16:11> Vital Signs Vital signs: Vital Signs - 8 hr 09/01/25 12:31 09/01/25 13:52 Temperature 97.8 F 99.7 F H Pulse Rate 57 L 97 H Respiratory Rate 18 12 Blood Pressure 146/67 H 138/63 Pulse Oximetry 98 97 Oxygen Delivery Method Room Air Room Air MDM - Extremity Injury (Upper) <Sonny Monreal PA-C - Last Filed: 09/01/25 13:47> MDM Narrative Medical decision making narrative: 79-year-old male presents to the ED with a left middle finger injury sustained 5 days prior to arrival. Given history, unlikely foreign object retained, no indication for imaging at this time. Presentation is most consistent with cellulitis. Prescribed antibiotics. Recommend follow-up with PCP as soon as possible. ED return precautions discussed with patient. Patient verbalized understanding. Medical records reviewed: Yes Discharge Plan Departure Patient Disposition: Home Clinical Impression: Cellulitis Qualifiers: Site of cellulitis: extremity Site of cellulitis of extremity: finger Laterality: left Qualified Code(s): L03.012 - Cellulitis of left finger Instructions: DI for Cellulitis -- Adult Activity Restrictions/Additional Instructions: You were evaluated in the emergency department for a finger injury. It appears that the cut might be infected, for which you are being prescribed an antibiotic. Please follow-up with your PCP as soon as possible. Return to the ED if your symptoms worsen. Prescriptions: New cephalexin 500 mg capsule 500 mg PO QID 5 Days Qty: 20 0RF No Action aspirin 325 MG tablet,delayed release (DR/EC) 325 mg PO Q DAY Qty: 0 promethazine 25 MG tablet 25 mg PO PRNQty: 0 omeprazole 20 MG capsule,delayed release(DR/EC) 20 mg PO Q DAY Qty: 0 tamsulosin [Flomax] 0.4 MG capsule,extended release 24hr 0.4 mg PO Q DAY Qty: 0 lamotrigine [Lamictal] 100 MG tablet 50 mg PO BID Qty: 0 hydrocodone-acetaminophen [Vicodin] 5 MG/300 MG tablet 1 tab PO Q 6 PRNQty: 0 atorvastatin [Lipitor] 10 MG tablet 10 mg PO QHS Qty: 0 hydrocodone-acetaminophen 5-325 mg tablet 1 tab PO Q6H PRN (Reason: pain) Qty: 20 0RF Referrals: Nuzhat Gutiérrez MD [Primary Care Provider, Internal Medicine] Stand Alone Forms: Patient Portal/API ED Sign-out <Haley Martins DO - Last Filed: 09/01/25 16:11> Cosign ED Attending [place] Attestation: I was immediately available in the department for consultation.
[2025-09-01 13:52] VITALS: BP 138/63; PULSE 97; RESP 12; TEMP 37.6; O2SAT 97
== END 2025-09-01 13:53 | disposition home or self-care (01) ==
PROVIDERS: Emergency Provider Student in an Organized Health Care Education/Training Program; PCP Internal Medicine
DX: L03.012 Cellulitis of left finger (principal); W26.9XXA Contact with unspecified sharp object(s), initial encounter
CPT/HCPCS: 99281